=== PATIENT | female | born 1965 | race African-American/Black ===

== ENCOUNTER 2024-12-04 13:20 | Emergency (ER) | payer MEDICAID ==
[~2024-12-04] VITALS: Ht 170.2 cm; Wt 121.0 kg
[2024-12-04 13:31] VITALS: O2SAT 99
[2024-12-04 13:38] VITALS: BP 193/114; PULSE 103; RESP 16; TEMP 37.2; O2SAT 100
== END 2024-12-04 15:39 | disposition left against medical advice (07) ==
LOC: ER 13:20
DX: R07.89 Other chest pain (principal); Z53.21 Procedure and treatment not carried out due to patient leaving prior to being seen by health care provider